=== PATIENT | male | born 1985 | race Caucasian/White ===

== ENCOUNTER 2024-09-26 22:24 | Emergency (ER) | payer MEDICAID ==
[~2024-09-26] VITALS: Ht 172.7 cm; Wt 74.8 kg
[2024-09-27] MEDS ORDERED: KETOROLAC TROMETHAMINE 15 MG/ML VIAL ONE (00:53)
[2024-09-27] MEDS: IV NS 0.9% 1,000 ML BAG IV ONE (00:57)
[2024-09-27] MEDS: KETOROLAC TROMETHAMINE 15 MG/ML VIAL IV ONE (00:57)
[2024-09-27 01:06] LABS: PLATELET COUNT (AUTO) 252 K/uL (150-450); RED BLOOD CELL COUNT(AUTO) 4.98 MIL/uL (4.5-6.0); RED CELL DISTRIBUTION WIDTH 13.2 % (11.5-15.0); WHITE BLOOD COUNT (AUTO) 10.1 K/uL (4.3-11.0)
[2024-09-27 01:13] LABS: APPEARANCE,URINE CLEAR (CLEAR); BLOOD, URINE 2+ Ery/uL (NEGATIVE); LEUKOCYTE ESTERASE ,URINE NEGATIVE (NEGATIVE); NITRITE, URINE NEGATIVE (NEGATIVE); UGLUCOSE NEGATIVE (NEGATIVE)
[2024-09-27 01:16] LABS: CALCIUM, SERUM 9.0 mg/dL (8.5-10.1); CREATININE 0.9 mg/dL (0.6-1.3); SODIUM SERUM 138.0 mmol/L (136-145); UREA NITROGEN, BLOOD 16.0 mg/dL (7-18)
[2024-09-27 01:17] LABS: ADD URINE CULTURE NO; SQUAMOUS EPITHELIAL CELL,UR Few /HPF (None Seen)
[2024-09-27 01:20] LABS: ASPARTATE AMINOTRANSFERASE 15.0 U/L (15-37); TOTAL PROTEIN, SERUM 6.9 g/dL (6.4-8.2)
[2024-09-27] MEDS ORDERED: TAMS-12 PO (02:11)
[2024-09-27] MEDS ORDERED: KETO10TA2 PO ×2 (02:11→18:59)
[2024-09-27] MEDS ORDERED: KETOROLAC TROMETHAMINE INJ 30 MG/ML VIAL ONE (02:23)
[2024-09-27] MEDS ORDERED: TAMSULOSIN 0.4 MG CAP.SR.24H ONE (02:24)
[2024-09-27] MEDS: KETOROLAC TROMETHAMINE INJ 30 MG/ML VIAL IV ONE (02:34)
[2024-09-27] MEDS: TAMSULOSIN 0.4 MG CAP.SR.24H PO ONE (02:34)
[2024-09-27 02:41] VITALS: BP 126/79; TEMP 98.5; O2SAT 98
== END 2024-09-27 02:41 | disposition home or self-care (01) ==
LOC: ER 22:45
DX: N13.2 Hydronephrosis with renal and ureteral calculous obstruction (principal); G40.909 Epilepsy, unspecified, not intractable, without status epilepticus; Z86.018 Personal history of other benign neoplasm; Z60.2 Problems related to living alone
CPT/HCPCS: 99285; 74176; 96374; 96361; 96376; 85025; 80048; 87086; 83690; 80076; 81001; 36415; J1885 ×2